=== PATIENT | female | born 1975 | race Caucasian/White ===

== ENCOUNTER 2018-02-08 04:29 | Emergency (ER) | payer BC ==
[2018-02-08 04:47] VITALS: BP 156/83
--- NOTE | 2018-02-08 07:27 | ER ---
REASON FOR EMERGENCY ROOM VISIT: Left hip pain. HISTORY OF PRESENT ILLNESS: This 42-year-old woman has had a 4-to 5-day history of pain in her left hip. She was on vacation in [place] when this started. It started somewhat gradually and was not associated with any twisting or trauma or falling. She describes the pain as a throbbing constantly. It is located in the lateral aspect of the hip. It is not affected by walking or weightbearing, particularly. She has had a couple of times when she has noted some numbness over the anterior or lateral thigh area, but those instances have been very infrequent. She does not have any hypersensitive areas to the skin of her hip. She has never had any arthritis before. She was seen by a chiropractor who told her that her hip was "out," and he worked on her for a while, but it did not seem to help. She saw a physician in the clinic 2 days ago who gave her a prescription for meloxicam. She was also given cyclobenzaprine and Tylenol for her pain. She did not have any x-rays done. The pain has gotten to the point where it is interfering with her sleep. She denies any GI symptoms or low back pain. PAST MEDICAL HISTORY: She has a history of: 1. Depression. 2. Psoriasis. CURRENT MEDICATIONS: Include, 1. Meloxicam 7.5 mg p.o. daily. 2. Flexeril 10 mg p.o. daily. 3. Vitamins. 4. Sertraline HCL 150 mg p.o. daily. ALLERGIES: None to medications. REVIEW OF SYSTEMS: Pertinent positives and negatives as listed in the HPI. PHYSICAL EXAMINATION: VITAL SIGNS: She is very obese (weight 145 kg), heart rate is 83, she is afebrile, respirations 16, blood pressure 168/116, O2 saturations 100% on room air. MUSCULOSKELETAL: On careful palpation about the hip area and over the sacroiliac area, I was unable to reproduce any of her pain or detect a trigger point. On passive range of motion of her hip in all directions and also including internal and external rotation, there is no bony crepitus and her pain is not exaggerated. Her range of motion in this regard is quite normal. Straight leg raising was done and this was negative. Eldon's test was negative. I stood her up and carefully palpated for an inguinal hernia or femoral hernia and there was none. I palpated over the trochanteric bursa and this was nontender. Her pulses distally are normal. Sensation is normal distally. I re- examined her leg with passive range of motion in flexion, extension, internal and external rotation, abduction and adduction, and was unable to reproduce any of the discomfort. I asked her to walk for me and her gait was normal, and she states that she does not notice a change in her gait. Plain films of her left hip do not show any distinct abnormality. There may be some suggestion of sclerosis along the medial aspect of her acetabulum, but I am not sure that that is normal. IMPRESSION: Left hip pain. I am at a loss to explain this. PLAN: She has only had this for 4 or 5 days and this may completely resolve on its own, but I think it is sensible, if not prudent, for her to make an appointment to see a provider with view toward considering further studies such as MRI, etc. By the time she gets in, this may well have resolved, which would be a good thing. I told her for now she should continue her medications including the meloxicam. I am not confident that this Flexeril will do her much good, but I told her it is okay to go ahead and keep taking it. She can alternate Tylenol with this. All questions were answered. She understands and agrees. REGI /[id number]
--- NOTE | 2018-02-08 07:53 | CR ---
Left hip: AP and frog-leg lateral views of the left hip were obtained. Comparison: No prior study. Slight joint space narrowing is noted. No fracture or other bony abnormality is seen. Impression: 1. Slight joint space narrowing. 2. Left hip exam is otherwise unremarkable. Diagnostic code #2
== END 2018-02-08 05:53 | disposition home or self-care (01) ==
LOC: JD.ED 04:29
DX: M25.552 Pain in left hip (principal); F32.9 Major depressive disorder, single episode, unspecified; Z79.899 Other long term (current) drug therapy
CPT/HCPCS: 73502-26-LT; 73502-LT; 99282; 99283